=== PATIENT | male | born 1960 | race Caucasian/White ===

== ENCOUNTER 2017-01-09 13:43 | Emergency (ER) | payer BC ==
--- NOTE | 2017-01-09 13:50 | DR.GENAD ---
HPI - PCP Primary Care Physician: NLD - Complaint/Symptoms Chief Complaint Doctors Comments: Patient presented to the ED with complaint of chest pain midsternal radiating to bilateral neck. The pain was different than usual with radiating to the neck. 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 ROS - Review of Systems Eyes: No Symptoms Reported ENTM: No Symptoms Reported Respiratoy: No Symptoms Reported Cardiovascular: No Symptoms Reported Gastrointestinal/Abdominal: No Symptoms Reported Genitourinary: No Symptoms Reported Neurological: No Symptoms Reported Musculoskeletal: No Symptoms Reported Integumentary: No Symptoms Reported Hematologic/Lymphatic: No Symptoms Reported Endocrine: No Symptoms Reported Psychiatric: No Symptoms Reported All Other Systems: Reviewed and Negative PE - Vital Signs Vitals: Temperature 97.8 F Pulse Rate [Right Brachial] 67 Pulse Rate 83 Respiratory Rate 14 Blood Pressure [Right Arm] 127/84 Blood Pressure 135/84 O2 Sat by Pulse Oximetry 96 - General Limitations: No Limitations General Appearance: Alert, Anxious - Head Head Exam: Normal Inspection, Atraumatic - Eyes Eye exam: Normal Appearance, PERRL, EOMI - ENT ENT Exam: Normal Exam External Ear Exam: Normal External Inspection TM/Canal Exam: Bilateral Normal Nose Exam: Normal Nose Exam Mouth Exam: Normal Inspection Throat Exam: Normal Inspection - Neck Neck Exam: Normal Inspection - Chest Chest Inspection: Normal Inspection - Respiratory Respiratory Exam: Normal Lung Sounds Bilat Respiratory Exam: Bilateral Clear to Auscultation - Cardiovascular Cardiovascular Exam: Regular Rate - Abdominal Exam Abdominal Exam: Normal Inspection Abdominal Tenderness: negative: RUQ, RLQ, LUQ, LLQ, Epigastrium, Suprapubic, Diffuse, Mild, Moderate, Severe, Other - Extremities Extremities Exam: Normal Inspection, Full ROM - Back Back Exam: Normal Inspection, Full ROM - Neurologic Neurological Exam: Alert, Oriented X3, CN II-XII Intact - Psychiatric Psychiatric Exam: Normal Affect - Skin Skin Exam: Warm, Dry, Intact Course - Reevaluation 1st: Improved ROR - Labs Reviewed Result Diagrams: 01/09/17 13:53 01/09/17 13:53 Laboratory: WBC 8.4 X10^3/uL (3.6-10.0) 01/09/17 13:53 RBC 5.38 X10^6/uL (4.7-6.0) 01/09/17 13:53 Hgb 15.3 g/dL (13.5-18.0) 01/09/17 13:53 Hct 45.6 % (42.0-54.0) 01/09/17 13:53 MCV 84.6 fL (80.0-100.0) 01/09/17 13:53 MCH 28.4 pg (27.0-34.0) 01/09/17 13:53 MCHC 33.6 g/dL (33.0-35.0) 01/09/17 13:53 RDW 13.1 % (11.6-16.5) 01/09/17 13:53 Plt Count 302 X10^3/uL (150.0-450.0) 01/09/17 13:53 MPV 8.4 fL (7.4-11.0) 01/09/17 13:53 Neut % 59.2 % (42.0-75.0) 01/09/17 13:53 Lymph % 30.3 % (21.0-51.0) 01/09/17 13:53 [place]elope % 5.5 % (0.0-13.0) 01/09/17 13:53 Eos % 4.2 % (0.9-2.9) H 01/09/17 13:53 Baso % 0.8 % (0.2-1.0) 01/09/17 13:53 Neut # 5.0 x10^3/uL (2.2-4.8) H 01/09/17 13:53 Lymph # 2.5 X10^3/uL (1.3-2.9) 01/09/17 13:53 [place]elope # 0.5 x10^3/uL (0.3-0.8) 01/09/17 13:53 Eos # 0.4 x10^3/uL (0.0-0.2) H 01/09/17 13:53 Baso # 0.1 X10^3/uL (0.0-0.1) 01/09/17 13:53 Absolute Nucleated RBC 0.0 /100WBC 01/09/17 13:53 Sodium 139 mmol/L (136-145) 01/09/17 13:53 Corrected Sodium 140 mmol/L (136-145) 01/09/17 13:53 Potassium 4.1 mmol/L (3.5-5.1) 01/09/17 13:53 Chloride 102 mmol/L (98-107) 01/09/17 13:53 Carbon Dioxide 25.9 mmol/L (21-32) 01/09/17 13:53 BUN 17 mg/dL (7-18) 01/09/17 13:53 Creatinine 1.35 mg/dL (0.70-1.30) H 01/09/17 13:53 Est GFR (MDRD) Af Amer > 60 (>60) 01/09/17 13:53 Est GFR (MDRD) Non-Af 58 (>60) L 01/09/17 13:53 Glucose 139 mg/dL (65-99) H 01/09/17 13:53 Calcium 9.2 mg/dL (8.5-10.1) 01/09/17 13:53 Corrected Calcium TNP 01/09/17 13:53 Total Bilirubin 0.30 mg/dL (0.2-1.0) 01/09/17 13:53 AST 19 Units/L (15-37) 01/09/17 13:53 ALT 45 Units/L (12-78) 01/09/17 13:53 Alkaline Phosphatase 114 Units/L (46-116) 01/09/17 13:53 Creatine Kinase 117 Units/L (39-308) 01/09/17 13:53 CK-MB (CK-2) 1.9 ng/mL (0-4.0) 01/09/17 13:53 CK/CKMB % Calc 1.6 % (<4) 01/09/17 13:53 Troponin I < 0.02 ng/mL (0-1.5) 01/09/17 13:53 Total Protein 8.2 g/dL (6.4-8.2) 01/09/17 13:53 Albumin 3.8 g/dL (3.4-5.0) 01/09/17 13:53 Globulin 4.4 g/dL (2.5-4.5) 01/09/17 13:53 Albumin/Globulin Ratio 0.9 Ratio (1.1-2.1) L 01/09/17 13:53 - XRAY XRAY Interpreted by: Radiologist (CT Chest: No significant abnormality identified) - EKG [place]: Normal Rhythm: NSR Block: None Hypertrophy: LAE - Diagnosis Discharge Problem: Chest pain Qualifiers: Chest pain type: unspecified Qualified Code(s): R07.9 - Chest pain, unspecified - Discharge Plan Condition: Stable Prescriptions: Dextrose [Dextrose 50%] 50 % IV ONCE #1 inj Insulin R (Regular) [HUMULIN R (REGULAR) INSULIN 10 ML VIAL *] 10 units IV ONCE #10 ml - Follow ups/Referrals Follow ups/Referrals: NFD,None [Primary Care Provider] - 3 days - Instructions
[2017-01-09] MEDS: NITROSTAT SL PRN ×3 (13:53→14:04)
[2017-01-09] MEDS: NS 1000 ML 1,000 ML IV SCH ×2 (14:03→22:12)
[2017-01-09 14:07] LABS: BASOPHILS # (AUTO) 0.1 X10^3/uL (0.0-0.1); BASOPHILS % (AUTO) 0.8 % (0.2-1.0); EOSINOPHILS # (AUTO) 0.4 x10^3/uL (0.0-0.2); EOSINOPHILS % (AUTO) 4.2 % (0.9-2.9); HEMATOCRIT 45.6 % (42.0-54.0); HEMOGLOBIN 15.3 g/dL (13.5-18.0); LYMPHOCYTES # (AUTO) 2.5 X10^3/uL (1.3-2.9); LYMPHOCYTES % (AUTO) 30.3 % (21.0-51.0); MEAN CORPUSCULAR HEMOGLOBIN 28.4 pg (27.0-34.0); MEAN CORPUSCULAR HGB CONC 33.6 g/dL (33.0-35.0); MEAN CORPUSCULAR VOLUME 84.6 fL (80.0-100.0); MEAN PLATELET VOLUME 8.4 fL (7.4-11.0); MONOCYTES # (AUTO) 0.5 x10^3/uL (0.3-0.8); MONOCYTES % (AUTO) 5.5 % (0.0-13.0); NEUTROPHILS % (AUTO) 59.2 % (42.0-75.0); PLATELET COUNT 302 X10^3/uL (150.0-450.0); RED BLOOD COUNT 5.38 X10^6/uL (4.7-6.0); RED CELL DISTRIBUTION WIDTH 13.1 % (11.6-16.5); WHITE BLOOD COUNT 8.4 X10^3/uL (3.6-10.0)
[2017-01-09 14:09] VITALS: BMI 34.3
[2017-01-09 14:21] LABS: BLOOD UREA NITROGEN 17 mg/dL (7-18); CALCIUM 9.2 mg/dL (8.5-10.1); CARBON DIOXIDE 25.9 mmol/L (21-32); CHLORIDE 102 mmol/L (98-107); COR NA(FOR HYPERGLY) 140 mmol/L (136-145); CREATININE 1.35 mg/dL (0.70-1.30); GLUCOSE 139 mg/dL (65-99); SODIUM 139 mmol/L (136-145); TROPONIN I < 0.02 ng/mL (0-1.5); eGFR BLACK RACES > 60 (>60); eGFR NON BLACK RACES 58 (>60)
[2017-01-09 14:26] LABS: ALANINE AMINOTRANSFERASE 45 Units/L (12-78); ALBUMIN 3.8 g/dL (3.4-5.0); ALKALINE PHOSPHATASE 114 Units/L (46-116); ASPARTATE AMINO TRANSFERASE 19 Units/L (15-37); CKMB % 1.6 % (<4); CREATINE KINASE 117 Units/L (39-308); CREATINE KINASE MB 1.9 ng/mL (0-4.0); TOTAL PROTEIN 8.2 g/dL (6.4-8.2)
--- NOTE | 2017-01-09 14:31 | RAD ---
Examination: Chest x-ray. Clinical History: Chest pain. Technique: A single portable AP view of the chest was obtained. Comparison: None available. Findings: The chest is mildly rotated. The lungs are hypoventilated, precluding evaluation of the heart size. No pneumothorax or pleural effusion is noted. There is a hazy confluent opacity present at the left lung base, partially obscuring visualization o f the left hemidiaphragm and left costophrenic angle. Findings could be due to superimposition of so ft tissues. An area of atelectasis, pneumonia or asymmetric edema, with or without a small left-side d pleural effusion, cannot be excluded. Degenerative changes are noted in the spine. No acute osseous abnormality is noted. Monitor leads ar e seen overlying the chest. Impression: 1. Hypoventilated lungs. 2. There is a hazy confluent opacity present at the left lung base, partially obscuring visualizatio n of the left hemidiaphragm and left costophrenic angle. Findings could be due to superimposition of soft tissues. An area of atelectasis, pneumonia or asymmetric edema, with or without a small left-s ided pleural effusion, cannot be excluded. Reported By:
--- NOTE | 2017-01-09 15:17 | CT ---
HISTORY: Follow up abnormal chest x-ray Study: CT chest without contrast Comparison: Plain chest x-ray same date Technique: Axial non contrast images with coronal and sagittal reformats. Dose reduction procedures were use with MA/kv adjusted for body size. Findings: Examination of the mediastinum demonstrated no evidence for mediastinal masses, lymphadenopathy, or hilar lymphadenopathy. Coronary artery calcifications are present. No pleural effusions are identifi ed. No chest wall or axillary abnormality is identified. Those portions of the upper abdominal organ s visualized were within normal limits. Examination of the lung sierra demonstrated no significant n odules, alveolar infiltrates, masses, areas of consolidation, peribronchial thickening, or bronchiec tasis. The left lower lung field is clear. IMPRESSION: No significant abnormality identified Reported By:
[2017-01-09] MEDS ORDERED: ZOFRAN INJ 4 MG VIAL IVP PRN (16:13)
[2017-01-09] MEDS ORDERED: MORPHINE SULFATE INJ 4 MG IVP PRN (16:14)
[2017-01-09] MEDS ORDERED: [UNRECOGNIZED DRUG - OTHER] PO PRN (16:16)
[2017-01-09] MEDS: PLAVIX PO SCH (20:51)
[2017-01-09] MEDS: COREG TAB 3.125 MG PO SCH (20:51)
[2017-01-09 21:24] LABS: CKMB % 1.7 % (<4); CREATINE KINASE 98 Units/L (39-308); CREATINE KINASE MB 1.7 ng/mL (0-4.0); TROPONIN I < 0.02 ng/mL (0-1.5)
[2017-01-10 02:17] LABS: CKMB % 2.1 % (<4); CREATINE KINASE 88 Units/L (39-308); CREATINE KINASE MB 1.8 ng/mL (0-4.0)
[2017-01-10 02:34] LABS: TROPONIN I < 0.02 ng/mL (0-1.5)
[2017-01-10] MEDS: NS 1000 ML 1,000 ML IV SCH (06:18)
[2017-01-10 06:34] LABS: CHOL/HDL RATIO 3.4 (0.0-5.0)
[2017-01-10 08:06] VITALS: BP 144/72
[2017-01-10] MEDS ORDERED: ASPIRIN EC 81 MG PO SCH (09:00)
[2017-01-10] MEDS: COREG TAB 3.125 MG PO SCH (09:07)
[2017-01-10] MEDS: PLAVIX PO SCH (09:08)
[2017-01-10] MEDS ORDERED: SNACK - Diabetic Appropriate PO SCH (20:00)
== END 2017-01-10 11:40 | disposition home or self-care (01) ==
LOC: ER 14:01 → MED/SURG 16:08
PROVIDERS: ADMIT Obstetrics & Gynecology Obstetrics; ATTEND Obstetrics & Gynecology Obstetrics
DX: R07.89 Other chest pain (principal); I25.10 Atherosclerotic heart disease of native coronary artery without angina pectoris; I10 Essential (primary) hypertension; E11.65 Type 2 diabetes mellitus with hyperglycemia; M54.2 Cervicalgia; E78.2 Mixed hyperlipidemia; R94.4 Abnormal results of kidney function studies
CPT/HCPCS: 36415; 71010; 71250; 80053; 80061; 82550; 82553; 84484; 85025; 93005; 93010; 94760; 96365; 99284; A4216; A4222; G0378